=== PATIENT | female | born 2000 | race Caucasian/White ===

== ENCOUNTER 2024-04-24 12:59 | Outpatient (CLI) | payer BC, SELFPAY | END 2024-04-24 13:00 | disposition home or self-care (01) | PROVIDERS: Visit Provider Physician Assistant | DX: N93.9 Abnormal uterine and vaginal bleeding, unspecified (principal); R53.83 Other fatigue; F41.9 Anxiety disorder, unspecified | CPT/HCPCS: 80053; 84443; 87086; 87186 ==

== ENCOUNTER 2024-05-29 13:28 | Outpatient (CLI) | payer BC, SELFPAY | END 2024-05-29 13:29 | disposition home or self-care (01) | PROVIDERS: Visit Provider Emergency Medicine | DX: R45.851 Suicidal ideations (principal) | CPT/HCPCS: A0425; A0427 ==

== ENCOUNTER 2024-05-29 14:03 | Emergency (ER) | payer BC, SELFPAY ==
[2024-05-29 14:15] VITALS: BP 143/106; PULSE 87; RESP 16; TEMP 36.7; O2SAT 99; BMI 22.1
[2024-05-29] MEDS: IBUPROFEN 200 MG TABLET 400 MG PO (14:38)
--- NOTE | 2024-05-29 14:40 | ED.GENADULT ---
HPI - General Adult General Date Seen: 05/29/24 Chief complaint: Psychiatric Problem/Disorder Stated complaint: Suicidal Ideation Time Seen by Provider: 05/29/24 14:15 Source: patient Mode of arrival: ambulatory Limitations: no limitations History of Present Illness HPI narrative: Patient is a 23-year-old senior at [employer] who presents after talking with the crisis Line who called EMS. She notes a history of depression and anxiety as well as ADHD. In the past she had a psychiatrist but says that neither she nor her mother like the psychiatrist and she no longer sees them. She was tried on SSRIs but discontinued those about a year ago on her own, she felt that her ADHD was less well controlled taking SSRIs. She has never tried any other medication for depression. She does take p.r.n. hydroxyzine for anxiety and sleep. She has longstanding problems with suicidal ideation, she says her parents are not aware of this as she does not want them to feel bad or responsible. Do not know she is here today and she does not want them to know. She says today she was researching suicide methods and came across the possibility of helium. Previously she said her plan was carbon monoxide but she was not sure how to accomplish that without hurting other people. She felt that helium seem like a good option and knows that you can go buy a tank at a green party store. When I asked her if she thought she would go through with it she said no, she was too scared. But she says she is tired of feeling tired and wishes that she was [place] enough to go through with it. She has a lot of somatic complaints, including nausea, a sensation of incomplete bladder emptying, postnasal drip, headaches, dizziness, a possible diagnosis of POTS. She says that she has been gaining weight, she notes that she was 117 lb a few weeks ago and now is 121, she says she has been eating a lot and now feels that. She also is worried that her hair is thinning, she shows me her hairline where she feels that her part is wider. When specifically asked, she does acknowledge repetitive and intrusive negative thoughts. She says she is tired of hating herself. She has a roommate at school, but says they are not close. She says she does not have any friends. She drinks occasionally socially but says she does not like alcohol. Denies other substances. No prior history of hospitalization. Related Data Home Medications ?Medication ?Instructions ?Recorded ?Confirmed dextroamphetamine-amphetamine 5 mg 1 tab PO DAILY 04/24/24 04/24/24 tablet famotidine 20 mg tablet 20 mg PO BID 04/24/24 04/24/24 hydroxyzine HCl 10 mg tablet 10 mg PO 3XD 04/24/24 04/24/24 levonorgestrel-ethinyl estradiol 1 tab PO DAILY 04/24/24 04/24/24 0.1 mg-20 mcg tablet (Sronyx) lisdexamfetamine 40 mg capsule 40 mg PO DAILY 04/24/24 04/24/24 Allergies Allergy/AdvReac Type Severity Reaction Status Date / Time No Known Drug Allergies Allergy Verified 04/24/24 11:49 Review of Systems Status of ROS: Reports: 6 or more systems reviewed and unremarkable except as noted in History and below PFSH [facility] Social History Smoking Status: Never smoker How often do you have a drink containing alcohol: never AUDIT-C Alcohol total score: 0 Non-prescribed substance use: denies use Exam Narrative: Exam Narrative: Vital signs reviewed In general, alert, nontoxic young woman. Head: Normocephalic, atraumatic. Eyes: Sclera clear. Pupils equal and reactive. ENT: Mucous membranes moist. Neck: Supple without adenopathy. Heart: Regular rate and rhythm without murmur. Lungs: Clear. No increased work of breathing, crackles or wheezes. Abdomen: Soft, nontender to palpation. Extremities: Well perfused, pulses intact. No significant edema. Neurologic: Alert, conversant. Speech fluent, face symmetric. Moves all extremities equally. Skin: Warm, dry well perfused. Affect: Flat. Const: Vital Signs, click to edit/add: Vital Signs - 24 hr 05/29/24 14:15 Temperature 98.0 F Pulse Rate [Pulse Oximeter] 87 Respiratory Rate 16 Blood Pressure [Ri ght Upper Arm] 143/106 H Pulse Oximetry 99 Oxygen Delivery Me thod Room Air Course Course ED Course: I have concerns about her safety given her poor social support, lack of desire to involve her parents in her more worrisome symptoms, and fairly significant depressive symptoms without any current medication management and with active researching of suicide methods. Patient assessed by [facility] as well, they concur her with plan for inpatient management. She has been cooperative here, labs are unrevealing. She has been accepted at [facility] in [facility], will be transferred there by ground ambulance. Vital Signs Vital signs: Initial Vital Signs Temperature 98.0 F 05/29/24 14:15 Temperature Source Temporal Artery Scan 05/29/24 14:15 Pulse Rate 87 05/29/24 14:15 Respiratory Rate 16 05/29/24 14:15 Blood Pressure 143/106 H 05/29/24 14:15 Blood Pressure Mean 118 H 05/29/24 14:15 Blood Pressure Position Supine 05/29/24 14:15 Pulse Oximetry 99 05/29/24 14:15 Oxygen Delivery Method Room Air 05/29/24 14:15 Vital Signs Temperature 98.0 F 05/29/24 14:15 Pulse Rate 87 05/29/24 14:15 Respiratory Rate 16 05/29/24 14:15 Blood Pressure 143/106 H 05/29/24 14:15 Pulse Oximetry 99 05/29/24 14:15 Oxygen Delivery Method Room Air 05/29/24 14:15 Temperature 98.0 F 05/29/24 14:15 Pulse Rate 87 05/29/24 14:15 Respiratory Rate 16 05/29/24 14:15 Blood Pressure 143/106 H 05/29/24 14:15 Pulse Oximetry 99 05/29/24 14:15 Oxygen Delivery Method Room Air 05/29/24 14:15 Medications Administered Medications: Discontinued Medications Generic Name Dose Route Start Last Admin Trade Name Rodger PRN Reason Stop Dose Admin Ibuprofen 400 mg 05/29/24 14:26 05/29/24 14:38 Ibuprofen 200 Mg Tablet PO 05/29/24 14:27 400 mg ONCE ONE Administration Ondansetron HCl 4 mg 05/29/24 14:47 05/29/24 14:53 Ondansetron Odt 4 Mg Tab PO 05/29/24 14:48 4 mg ONCE ONE Administration Medical Decision Making Lab Data Labs: Lab Results 05/29/24 05/29/24 05/29/24 Range/Units 14:45 15:22 Unknown WBC 10.56 (4.50-11.00) K/uL RBC 4.73 (4.00-5.20) m/uL Hgb 13.8 (12.0-16.0) gm/dL Hct 41.7 (33.0-51.0) % MCV 88 (80-100) fL MCH 29 (26-34) pg MCHC 33 (32-36) gm/dL RDW Coeff of [place] 11.7 (11.5-15.5) % Plt Count 264 (140-440) K/uL Neut % (Auto) 76.9 H (42.0-72.0) % Lymph % (Auto) 18.1 L (20-44) % [place] % (Auto) 3.8 (0.0-11.0) % Eos % (Auto) 0.5 (0.0-7.0) % Baso % (Auto) 0.6 (0.0-3.0) % Neut # (Auto) 8.10 H (1.7-7.0) K/uL Lymph # (Auto) 1.90 (0.90-2.90) K/uL [place] # (Auto) 0.40 (0.00-0.90) K/UL Eos # (Auto) 0.05 (0.00-0.50) K/uL Baso # (Auto) 0.06 (0.00-0.30) K/uL Abs Immat Gran (auto) 0.01 (0.00-0.30) K/uL Imm/Tot Granulo (auto) 0.1 % Sodium 137 (135-149) mmol/L Potassium 4.6 (3.6-5.1) mmol/L Chloride 107 (96-114) mmol/L Carbon Dioxide 22 (20-32) mmol/L Anion Gap 8 (7-15) mEq/L BUN 8 (5-24) mg/dL Creatinine 0.6 (0.5-1.5) mg/dL Estimated Creat Clear 117.31 Estimated GFR 131 ml/min Glucose 98 (60-115) mg/dL Calcium 9.4 (8.4-10.6) mg/dL TSH 0.562 (0.270-4.200) uIU/mL Urine Color Yellow (Yellow) Urine Appearance Slightly Cloudy A (Clear) Urine pH 7.5 (5.0-8.5) Ur Specific [place] 1.020 (1.000-1.030) Urine Protein Negative (Negative) Urine Glucose (UA) Negative (Negative) Urine Ketones 1+ A (Negative) Urine Blood Negative (Negative) Urine Nitrite Negative (Negative) Urine Bilirubin Negative (Negative) Urine Urobilinogen 0.2 (0.2-1.0) Ur Leukocyte Esterase Negative (Negative) Urine RBC 0-2 (0-2) Urine WBC 0-2 (0-5) Ur Squamous Epith Cells Few (None-Few) Amorphous Sediment Few A (None) Urine Bacteria Few A (None) Urine HCG, Qual Negative (Negative) Salicylates < 1.0 L (1.0-10) mg/dL Urine Opiates Screen Negative (Negative) Ur Oxycodone Screen Negative (Negative) Urine Methadone Screen Negative (Negative) Acetaminophen < 10.0 L (10.0-30.0) ug/mL Ur Barbiturates Screen Negative (Negative) U Tricyclic Antidepress Negative (Negative) Ur Phencyclidine Scrn Negative (Negative) Ur Amphetamines Screen POSITIVE A (Negative) U Methamphetamines Scrn Negative (Negative) U Benzodiazepines Scrn Negative (Negative) Urine Cocaine Screen Negative (Negative) U Marijuana (THC) Screen Negative (Negative) Ur Drug Screen Comment See Note Ethyl Alcohol < 0.01 L (0.01-0.03) % SARS-CoV-2 (PCR) Negative SARS-CoV-2 (Negative) Discharge Plan Discharge Clinical Impression: Depression, Suicidal ideation Patient Disposition: Xfer Psychiatric Hosp Condition: Stable Prescriptions: No Action hydroxyzine HCl 10 mg tablet 10 mg PO 3XD dextroamphetamine-amphetamine 5 mg tablet 1 tab PO DAILY lisdexamfetamine 40 mg capsule 40 mg PO DAILY famotidine 20 mg tablet 20 mg PO BID levonorgestrel-ethinyl estrad [Sronyx] 0.1-20 mg-mcg tablet 1 tab PO DAILY Stand Alone Forms: [employer] Info Instructions
[2024-05-29] MEDS: ONDANSETRON ODT 4 MG TAB PO ×2 (14:53→19:12)
[2024-05-29 15:09] LABS: Ur HCG Qualitative* Negative (Negative)
[2024-05-29 15:18] LABS: Amphetamine Screen Urine POSITIVE (Negative); Barbiturate Screen Urine Negative (Negative); Benzodiazepines Screen Urine Negative (Negative); Cannabinoid Screen Urine Negative (Negative); Cocaine Screen Urine Negative (Negative); Methadone Screen Urine Negative (Negative); Methamphetamines Screen Urine Negative (Negative); Opiate Screen Urine Negative (Negative); Oxycodone Screen Urine Negative (Negative); Phencyclidine Screen Urine Negative (Negative); Tricyclic Antidepressant Urine Negative (Negative)
[2024-05-29 15:21] LABS: SARS PCR* Negative SARS-CoV-2 (Negative)
[2024-05-29 15:29] LABS: Appearance Urine Slightly Cloudy (Clear); Bilirubin Urine Negative (Negative); Blood Urine Negative (Negative); Color Urine Yellow (Yellow); Glucose Urine Negative (Negative); Ketones Urine 1+ (Negative); Leukocyte Esterase Urine Negative (Negative); Nitrite Urine Negative (Negative); Protein Urine Negative (Negative); Urobilinogen Urine 0.2 (0.2-1.0); pH Urine 7.5 (5.0-8.5)
[2024-05-29 15:34] LABS: Amorphous Sediment Urine Few; Bacteria Urine Few; RBC Urine 0-2 (0-2); Squamous Epithelial Cell Urine Few (None-Few); WBC Urine 0-2 (0-5)
[2024-05-29 15:43] LABS: Basophils Absolute Auto 0.06 K/uL (0.00-0.30); Basophils Percent Auto 0.6 % (0.0-3.0); Eosinophils Absolute Auto 0.05 K/uL (0.00-0.50); Eosinophils Percent Auto 0.5 % (0.0-7.0); Hematocrit 41.7 % (33.0-51.0); Hemoglobin* 13.8 gm/dL (12.0-16.0); Immature Granulocytes Abs Auto 0.01 K/uL (0.00-0.30); Immature Granulocytes Pct Auto 0.1 %; Lymphocytes Percent Auto 18.1 % (20-44); Mean Corpuscular HGB Conc 33 gm/dL (32-36); Mean Corpuscular Hemoglobin 29 pg (26-34); Mean Corpuscular Volume 88 fL (80-100); Monocytes Percent Auto 3.8 % (0.0-11.0); Neutrophils Percent Auto 76.9 % (42.0-72.0); Platelet Count* 264 K/uL (140-440); RDW Coefficient of Variation % 11.7 % (11.5-15.5); Red Blood Count 4.73 m/uL (4.00-5.20); White Blood Count* 10.56 K/uL (4.50-11.00)
[2024-05-29 15:44] LABS: Slide Review Reflex No
[2024-05-29 15:46] LABS: Chloride* 107 mmol/L (96-114); Potassium* 4.6 mmol/L (3.6-5.1); Sodium* 137 mmol/L (135-149)
[2024-05-29 15:49] LABS: Anion Gap 8 mEq/L (7-15); Carbon Dioxide* 22 mmol/L (20-32); Creatinine* 0.6 mg/dL (0.5-1.5); Est. Creatinine Clearance* 117.31; Estimated Glomerular Filt Rate 131 ml/min
[2024-05-29 15:50] LABS: Blood Urea Nitrogen* 8 mg/dL (5-24); Calcium* 9.4 mg/dL (8.4-10.6); Glucose* 98 mg/dL (60-115)
[2024-05-29 15:52] LABS: Acetaminophen* < 10.0 ug/mL (10.0-30.0); Ethanol* < 0.01 % (0.01-0.03); Salicylate* < 1.0 mg/dL (1.0-10)
[2024-05-29 16:31] LABS: TSH With Reflex to FT4* 0.562 uIU/mL (0.270-4.200)
[2024-05-29 18:18] VITALS: BP 137/100; PULSE 87; RESP 18; TEMP 36.9; O2SAT 98
[2024-05-29] MEDS: ACETAMINOPHEN 500 MG TABLET 1000 MG PO (18:47)
[2024-05-29] MEDS: diphenhydrAMINE 50 MG/ML inj 25 MG IM (19:08)
[2024-05-29] MEDS: KETOROLAC 30 MG/ML inj IM (19:11)
== END 2024-05-29 19:24 ==
PROVIDERS: Emergency Provider Emergency Medicine
DX: R45.851 Suicidal ideations (principal); F32.A Depression, unspecified
CPT/HCPCS: 36415; 80048; 80143; 80179; 80306; 81001; 81025; 82077; 84443; 85025; 87086; 87186; 87635; 99284; 99285; A9270; J1200; J1885

== ENCOUNTER 2024-05-29 19:17 | Outpatient (CLI) | payer BC, SELFPAY | END 2024-05-29 19:18 | disposition home or self-care (01) | LOC: AMB 05-30 10:20 | PROVIDERS: Visit Provider Family Medicine | DX: R45.851 Suicidal ideations (principal) | CPT/HCPCS: A0425; A0429 ==